=== PATIENT | female | born 1955 | race Two or more races ===

== ENCOUNTER 2017-01-21 08:26 | Emergency (ER) | payer BC ==
--- NOTE | 2017-01-21 13:18 | ER ---
ADMIT: 01/21/2017 RM/LOC: ER [facility] MR#: [id number] [place], [place] [id number] [place] [address] [place] [address] Emergency Room Report SEX: F AGE: 61 : 1955 DATE: 01/21/2017 TIME: 0826 hours. Please refer to my T-sheet for complete H and P. Briefly, the patient comes in with a rash that started at 0300 hours this morning, cannot think of any new medications. No detergents. No lotions. No contact. No shortness of breath and no mouth swelling. She says it itches. She has had this, and this is the third episode of this in the last year, so I can not think any new contacts. PHYSICAL EXAMINATION: VITAL SIGNS: Stable. She is afebrile. HEENT: Grossly normal. LUNGS: Clear. HEART: Regular. SKIN: Diffuse urticarial appearing rash on her torso, anterior posterior legs, and arms, and head. EMERGENCY ROOM COURSE: We gave her prednisone 20 p.o., Benadryl 25 p.o., and she is ready for discharge. ASSESSMENT: 1. Acute urticarial reaction. 2. Rash. PLAN: Prednisone 20 b.i.d. for 5 days. Return if worse. Follow up with Pool. Facundo Joseph MD/ sandy JOB #: [id number] CC: Facundo Joseph MD, Attending Physician UNKNOWN, Family Physician
== END 2017-01-21 09:20 | disposition home or self-care (01) ==
LOC: ER 08:26
DX: L50.9 Urticaria, unspecified (principal)